=== PATIENT | female | born 1995 | race Caucasian/White ===

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

== ENCOUNTER 2017-05-04 19:07 | Inpatient (IN) | payer MEDICAID, OTHER ==
[~2017-05-04] VITALS: Ht 144.8 cm; Wt 61.7 kg
[~2017-05-04 19:07] MED LIST changes: +FERR-193 PO; -FERR325E14 PO; +MEDR5TAB PO; -[UNRECOGNIZED DRUG - CODE] PO
[2017-05-04 19:27] VITALS: BP 123/71
--- NOTE | 2017-05-04 19:28 | NUR ---
PT GIVEN UA CUP TO COLLECT SPECIMEN. PT SENT BACK INTO LOBBY TO WAIT FOR ED BED.
--- NOTE | 2017-05-04 19:45 | NUR ---
FOR LAB WORKS, DONE BY [employer], PATIENT TOLERATED WELL. PATIENT RETURN BACK TO THE LOBBY IN STABLE CONDITION, ERMD NOTED.
[2017-05-04 20:09] LABS: ANION GAP 10.7 (8-16); CARBON DIOXIDE 27.2 mmol/L (21-32); CREATININE 0.7 mg/dL (0.6-1.3); POTASSIUM 3.9 mmol/L (3.5-5.1)
[2017-05-04 20:10] LABS: BASOPHILS # (AUTO) 0.1 K/uL (0.00-0.22); BASOPHILS % (AUTO) 1.6 % (0.0-2.0); EOSINOPHILS # (AUTO) 0.3 K/uL (0-0.4); EOSINOPHILS % (AUTO) 2.9 % (0.0-4.0); LYMPHOCYTES # (AUTO) 3.2 K/uL (2.5-16.5); LYMPHOCYTES % (AUTO) 34.8 % (20.5-51.1); MEAN CORPUSCULAR HEMOGLOBIN 26 pg (27-31); MEAN CORPUSCULAR HGB CONC 34 g/dL (33-37); MEAN CORPUSCULAR VOLUME 76 fL (80-94); MONOCYTES # (AUTO) 0.6 K/uL (0.8-1.0); MONOCYTES % (AUTO) 6.6 % (1.7-9.3); NEUTROPHILS # (AUTO) 5.1 K/uL (1.8-7.7); NEUTROPHILS % (AUTO) 54.1 % (42.2-75.2); PLATELET COUNT (AUTO) 436 K/uL (140-450); RED BLOOD CELL COUNT(AUTO) 2.73 MIL/uL (4.20-5.40); RED CELL DISTRIBUTION WIDTH 16.4 % (11.6-13.7); WHITE BLOOD COUNT (AUTO) 9.3 K/uL (4.5-11.0)
[2017-05-04 20:13] LABS: HEMOGLOBIN 6.9 g/dL (12.0-16.0)
[2017-05-04 20:14] LABS: HEMATOCRIT 20.7 % (36-48)
[2017-05-04 20:15] LABS: ALBUMIN 3.5 g/dL (3.4-5.0); TOTAL BILIRUBIN 0.7 mg/dL (0.0-1.0)
[2017-05-04 20:20] LABS: PROTHROMBIN TIME 10.4 secs (10.8-13.4)
--- NOTE | 2017-05-04 20:55 | NUR ---
SENT FOR XRAY WITH METER READER, AMBULATORY, IN STABLE CONDITION.
--- NOTE | 2017-05-04 21:45 | NUR ---
PATIENT IS A 21 Y/O FEMALE WHO PRESENTS TO THE ED C/O VAGINAL BLEEDING. PT STATES, "I HAVE BEEN BLEEDING CONSTANTLY FOR ABOUT 2 WEEKS." PT REPORTS 8/10 CRAMPING ABD PAIN THAT DOES NOT RADIATE. PT DENIES CP, SOB, REPORTS NAUSEA DENIES VOMITING/DIARRHEA. PT AAOX4, RR EVEN/UNLABORED. PT REPOSITIONED FOR COMFORT, BED IN LOWEST POSITION. ER MD DR. WHITMAN NOTIFIED. WILL CONTINUE TO MONITOR.
--- NOTE | 2017-05-04 23:15 | NUR ---
Patient will be admitted to care of DR. KAPADIA. Admited to M/S. Will go to room 120B. Belongings list completed. Report to SHEREE ORTIZ.
[2017-05-04] MEDS ORDERED: ACETAMINOPHEN 325 MG TAB PO PRN (23:50)
[2017-05-04] MEDS ORDERED: ONDANSETRON 4 MG/2 ML VIAL IVP PRN (23:50)
[2017-05-04] MEDS: DEXT 5% /NACL 0.9% 1,000 ML IV SCH (23:50)
[2017-05-04] MEDS ORDERED: HYDROcodone/APAP 5/325 MG 1 TAB TAB PO PRN (23:50)
[2017-05-05] VITALS: BP 106/64
--- NOTE | 2017-05-05 01:35 | NUR ---
PAGED DR KAPADIA, TO REQUEST NEW MEDICATION ORDERS BE PUT IN. WILL AWAIT CALLBACK.
--- NOTE | 2017-05-05 01:41 | NUR ---
RECEIVED REPORT FROM ER NURSE PAVEL. PT WAS BROUGHT BY WHEELCHAIR. MALE FRIEND AT THE BEDSIDE. PT IS AAOX4. ON ROOM AIR. NO SIGNS OF ACUTE DISTRESS NOTED, RESPIRATION EVEN AND UNLABORED, LUNGS SOUNDS CLEAR. PT HAS IV ACCESS ON LEFT AC RUNNING PACKED RED BLOOD CELLS BY GRAVITY. MRSA COLLECTED. VITAL SIGNS TEMP 98.4, HR 88, O2 100, BP 106/64, RESP 18. PLAN OF CARE DISCUSSED, PT VERBALIZED UNDERSTANDING. BED IN LOW POSITION, BILATERAL HALF SIDE RAIL UP, CALL LIGHT WITHIN REACH, WILL CONTINUE TO MONITOR.
[2017-05-05 02:45] LABS: CREATINE KINASE MB 0.1 ng/mL (0-3.6)
--- NOTE | 2017-05-05 03:00 | NUR ---
PT IS SLEEPING, AROUSABLE TO VOICE. NO SIGNS OF ACUTE DISTRESS, RESPIRATIONS EVEN AND UNLABORED. BED IN LOW POSITION, BILATERAL HALF SIDE RAILS UP, CALL LIGHT WITHIN REACH, WILL CONTINUE TO MONITOR.
[2017-05-05 04:00] VITALS: BP 100/58
--- NOTE | 2017-05-05 04:50 | NUR ---
PT IS AWAKE, RESTING COMFORTABLY IN BED. NO SIGNS OF ACUTE DISTRESS NOTED, RESPIRATIONS EVEN AND UNLABORED. BED IN LOW POSITION, BILATERAL HALF SIDE RAILS UP, CALL LIGHT WITHIN REACH, WILL CONTINUE TO MONITOR.
--- NOTE | 2017-05-05 06:53 | NUR ---
PATIENT HAS BEEN SCREENED AND CATEGORIZED LOW NUTRITION RISK. PATIENT WILL BE SEEN WITHIN 7 DAYS OF ADMISSION. 05/10/17 CAROL ALTAMIRANO MS, RDN
[2017-05-05 07:02] LABS: BASOPHILS # (AUTO) 0.2 K/uL (0.00-0.22); BASOPHILS % (AUTO) 2.2 % (0.0-2.0); EOSINOPHILS # (AUTO) 0.2 K/uL (0-0.4); EOSINOPHILS % (AUTO) 2.7 % (0.0-4.0); HEMATOCRIT 23.2 % (36-48); HEMOGLOBIN 7.8 g/dL (12.0-16.0); LYMPHOCYTES # (AUTO) 2.1 K/uL (2.5-16.5); LYMPHOCYTES % (AUTO) 26.1 % (20.5-51.1); MEAN CORPUSCULAR HEMOGLOBIN 26 pg (27-31); MEAN CORPUSCULAR HGB CONC 34 g/dL (33-37); MEAN CORPUSCULAR VOLUME 78 fL (80-94); MONOCYTES # (AUTO) 0.6 K/uL (0.8-1.0); PLATELET COUNT (AUTO) 319 K/uL (140-450); RED CELL DISTRIBUTION WIDTH 16.2 % (11.6-13.7); WHITE BLOOD COUNT (AUTO) 8.1 K/uL (4.5-11.0)
[2017-05-05 07:06] LABS: ANION GAP 9.2 (8-16); CARBON DIOXIDE 26.6 mmol/L (21-32); CREATININE 0.7 mg/dL (0.6-1.3); POTASSIUM 3.8 mmol/L (3.5-5.1)
[2017-05-05 07:09] LABS: MAGNESIUM 1.8 mg/dL (1.8-2.4); PHOSPHORUS 3.9 mg/dL (2.5-4.9)
--- NOTE | 2017-05-05 07:25 | NUR ---
ENDORSED PT TO AM NURSE FOR CONTINUITY OF CARE. PT IS IN STABLE CONDITION.
[2017-05-05 08:00] VITALS: BP 111/50
--- NOTE | 2017-05-05 08:00 | NUR ---
PT STANDING BY HER BED WITH HER BOY FRIEND IN THE ROOM. PT IS ALERT AND ORIENTED X4. PT IS RESPONSIVE TO VERBAL COMMAND WELL. NO ORA OR RESP DISTRESS NOTED. PT STATES ANNA SHE IS SATURATING A PAD ABOUT EVERY 2HRS. PT DENIES ANY DIZZINESS, SOB OR PAIN.
[2017-05-05] MEDS ORDERED: MEDROXYPROGESTERONE ACETATE PO SCH (09:00)
[2017-05-05] MEDS: FERROUS SULFATE 325 MG TABEC PO SCH ×2 (10:15→18:21)
[2017-05-05 12:00] VITALS: BP 118/60
[2017-05-05 16:00] VITALS: BP 110/52
--- NOTE | 2017-05-05 18:30 | NUR ---
PT IN BED RESTING COMFORTABLY AND TALKING TO HER FRIEND. DR KAPADIA NOTIFIED THAT PROVERA IS NOT AVAILABLE PER PHARMACY. NO ORDERS OBTAINED. PT REMAINS IN NSR ON THE MONITOR. NO C/O DIZZINESS OR WORSENING WITH GAVINAL BLEEDING. IVF REMAINS AT THE SAME RATE. V/S STABLE.
--- NOTE | 2017-05-05 19:20 | NUR ---
PATIENT REPORT RECEIVED FROM MORNING NURSE. PATIENT IS AWAKE, ALERT, AND ORIENTED. NO SIGNS AND SYMPTOMS OF DISTRESS NOTED. NO COMPLAINTS OF PAIN OR DIZZINESS AT THIS TIME. IV SITE NOTED ON LEFT AC, ASYMPTOMATIC, INTACT AND PATENT. BED IN LOWEST POSITION, SIDE RAILS UP AND CALL LIGHT WITHIN REACH. WILL CONTINUE TO MONITOR.
[2017-05-05 20:00] VITALS: BP 110/57
[2017-05-05] MEDS: DEXT 5% /NACL 0.9% 1,000 ML IV SCH (20:00)
[2017-05-06] VITALS: BP 96/53
--- NOTE | 2017-05-06 | NUR ---
TOOK PATIENT VITAL SIGNS. VITAL SIGNS WITHIN NORMAL LIMITS. ASKED PATIENT HOW MANY PADS HAVE BEEN SATURATED SINCE 8PM, SHE STATED "ONLY 1." WILL CONTINUE TO MONITOR.
[2017-05-06 04:00] VITALS: BP 95/50
--- NOTE | 2017-05-06 04:45 | NUR ---
CHECKED ON PATIENT. PATIENT IS ASLEEP. NO SIGNS AND SYMPTOMS OF DISTRESS NOTED. BREATHING EVEN AND UNLABORED. BED IN LOWEST POSITION, SIDE RAILS UP AND CALL LIGHT WITHIN REACH. WILL CONTINUE TO MONITOR.
[2017-05-06] MEDS: DEXT 5% /NACL 0.9% 1,000 ML IV SCH (05:50)
--- NOTE | 2017-05-06 05:50 | NUR ---
D5NS IVF NOT AVAILABLE IN TELE OR MS. TACTICAL DEBRIEFER AWARE
[2017-05-06 07:04] LABS: EOSINOPHILS # (AUTO) 0.3 K/uL (0-0.4); HEMATOCRIT 22.4 % (36-48); HEMOGLOBIN 7.3 g/dL (12.0-16.0); MONOCYTES # (AUTO) 0.6 K/uL (0.8-1.0); WHITE BLOOD COUNT (AUTO) 7.2 K/uL (4.5-11.0)
[2017-05-06 07:08] LABS: ANION GAP 10.3 (8-16); CARBON DIOXIDE 24.5 mmol/L (21-32); CREATININE 0.6 mg/dL (0.6-1.3); POTASSIUM 3.8 mmol/L (3.5-5.1)
[2017-05-06 07:14] LABS: BASOPHILS # (AUTO) 0.2 K/uL (0.00-0.22); BASOPHILS % (AUTO) 3.4 % (0.0-2.0); EOSINOPHILS % (AUTO) 4.2 % (0.0-4.0); LYMPHOCYTES # (AUTO) 2.7 K/uL (2.5-16.5); LYMPHOCYTES % (AUTO) 37.6 % (20.5-51.1); MEAN CORPUSCULAR HEMOGLOBIN 26 pg (27-31); MEAN CORPUSCULAR HGB CONC 33 g/dL (33-37); MEAN CORPUSCULAR VOLUME 79 fL (80-94); MONOCYTES % (AUTO) 8.7 % (1.7-9.3); NEUTROPHILS # (AUTO) 3.4 K/uL (1.8-7.7); NEUTROPHILS % (AUTO) 46.1 % (42.2-75.2); PLATELET COUNT (AUTO) 309 K/uL (140-450); RED BLOOD CELL COUNT(AUTO) 2.82 MIL/uL (4.20-5.40); RED CELL DISTRIBUTION WIDTH 16.5 % (11.6-13.7)
--- NOTE | 2017-05-06 07:20 | NUR ---
PATIENT REPORT GIVEN TO MORNING NURSE AT BEDSIDE. PATIENT IS IN STABLE CONDITION
--- NOTE | 2017-05-06 07:25 | NUR ---
ENDORSEMENT RECEIVED FROM BODY TRIMMER UPHOLSTERER NURSE. PATIENT IS AWAKE, ALERT, RESPIRATION EVEN, UNLABOR. SKIN DRY AND WARM. IV INTACT AND PATENT. NO DISTRESS NOTED AT THIS TIME. DENIED PAIN, N/V. CALL LIGHT WITHIN REACH
[2017-05-06 07:56] VITALS: BP 110/68
[2017-05-06] MEDS: FERROUS SULFATE 325 MG TABEC PO SCH (08:43)
--- NOTE | 2017-05-06 11:22 | NUR ---
PATIENT AWAKE, ALERT. RESPIRATION EVEN, UNLABOR. DENIED PAIN AT THIS TIME. STATED PATIENT CHANGED 3 PADS SINCE MORNING. FAMILY AT BEDSIDE. CALL LIGHT WITHIN REACH. WILL CONTINUE TO MONITOR
[2017-05-06 12:00] VITALS: BP 102/57
--- NOTE | 2017-05-06 14:36 | NUR ---
PATIENT IS SLEEPING COMFORTABLY, EASILY AROUSABLE BY NAME. RESPIRATION EVEN, UNLABOR. DENIED N/V, DIZZINESS. CALL LIGHT WITHIN REACH.
[2017-05-06] MEDS ORDERED: FERR-193 PO (14:49)
[2017-05-06] MEDS ORDERED: [UNRECOGNIZED DRUG - CODE] PO (14:49)
[2017-05-06] MEDS ORDERED: MEDR5TAB PO (14:49)
--- NOTE | 2017-05-06 15:30 | NUR ---
DISCHARGE INSTRUCTION AND PRESCRIPTION WERE GIVEN. PATIENT VERBALIZED UNDERSTANDING. IV WAS REMOVED WITH CATHETER TIP INTACT. PATIENT TOLERATED WELL. ID BAND WAS REMOVED. FAMILY AT BEDSIDE. PATIENT WAS ESCORTED OUT BY STAFF, STEADY GAIT.
== END 2017-05-06 15:30 | disposition home or self-care (01) | DRG 532 ==
LOC: MED 19:07 → MTU 22:50
PROVIDERS: ADMIT Preventive Medicine Preventive Medicine/Occupational Environmental Medicine; ATTEND Preventive Medicine Preventive Medicine/Occupational Environmental Medicine
PROC: 30233N1 Transfusion of Nonautologous Red Blood Cells into Peripheral Vein, Percutaneous Approach (ICD-10-PCS; principal; 2017-05-04)
DX: N93.8 Other specified abnormal uterine and vaginal bleeding (principal); D64.9 Anemia, unspecified; R73.9 Hyperglycemia, unspecified
CPT/HCPCS: 36415; 70450; 71010; 76856; 80048; 80053; 81025; 82550; 82553; 83735; 84100; 84484; 85025; 85610; 85730; 86886; 86900; 86901; 86920; 87081; 93308; 93880; 99285; J7030; J7042; P9016; Q0092